=== PATIENT | female | born 1965 | race African-American/Black ===

== ENCOUNTER → 2016-10-15 | Outpatient (CLI) | payer MEDICAID ==
--- NOTE | 2016-10-16 10:21 | ECHOF ---
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 This was a technically good study. The left ventricular size is normal. Left ventricular wall thickness is normal. Overall left ventricular systolic function is normal with, an EF between 60 - 65 %. The right ventricle is normal in size. The left atrium is normal in size. Normal LA size by volume 22+/-6 ml/m2. The right atrium is normal in size. The aortic valve is trileaflet and appears structurally normal. Mild mitral annular calcification present. There is trace mitral regurgitation. Mild tricuspid regurgitation present. Right ventricular systolic pressure is normal at < 35 mmHg. The pulmonic valve is normal. There is no pulmonic regurgitation present. The aortic root size is normal. Normal inferior vena cava with normal inspiratory collapse consistent with estimated right atrial pressure of 5 mmHg. There is no pericardial effusion. CONCLUSIONS -------- 1. Sinus rhythm. 2. Mild mitral annular calcification present. 3. There is trace mitral regurgitation. 4. Mild tricuspid regurgitation present. 5. Right ventricular systolic pressure is normal at < 35 mmHg. 6. The pulmonic valve is normal. 7. The aortic root size is normal. 8. Normal inferior vena cava with normal inspiratory collapse consistent with estimated right atrial pressure of 5 mmHg. 9. There is no pericardial effusion. 10. This was a technically good study. 11. The left ventricular size is normal. 12. Left ventricular wall thickness is normal. 13. Overall left ventricular systolic function is normal with, an EF between 60 - 65 %. 14. The right ventricle is normal in size. 15. Normal LA size by volume 22+/-6 ml/m2. 16. The right atrium is normal in size. 17. The aortic valve is trileaflet and appears structurally normal. LINE PALLETIZER: Linh Cabral RDCS
== END | disposition home or self-care (01) ==
LOC: RADECHMAIN 13:16
PROVIDERS: ATTEND Internal Medicine
DX: I26.02 Saddle embolus of pulmonary artery with acute cor pulmonale (principal)
CPT/HCPCS: 93306

== ENCOUNTER → 2016-10-28 | Day surgery (SDC) | payer MEDICAID ==
[~2016-10-28] MED LIST: BACITRACIN OINT 1 EACH PACKET TOPICAL ONE; LIDOCAINE 1% INJ 10MG/ML (20 ML MDV) ONE; SODIUM BICARB 4% 5 ML VIAL (0.48 MEQ/ML) ONE
--- NOTE | 2016-10-28 16:37 | MM ---
EXAMINATION TYPE: MG stereo VAD BX RT DATE OF EXAM: 10/28/2016 3:47 PM COMPARISON: 07/30/2016 CLINICAL HISTORY: Abnormal mammogram TECHNIQUE: Stereotactic guided core biopsy of right breast. FINDINGS: The procedure of stereotactic guided core biopsy was explained to the patient. Benefits, alternatives, and risks were discussed. An informed consent was then obtained. The shortness pathway for biopsy was chosen. Shortness pathway was inferior approach. The radiologist targeted and performed this stereotactic core biopsy. A vacuum assisted biopsy gun was used to obtain 4 core samples. The patient tolerated the procedure well without any immediate complication. The patient was kept in the radiology department for short stay after the procedure and then discharged home in stable condition. Targeted calcifications are identified in specimen mammogram. Post biopsy mammogram shows the clip to appear in satisfactory position relative to the targeted area of concern on the preprocedure images. Previous calcifications within resected. Discharge instructions were discussed with the patient. The patient will follow- up with her referring physician for pathology results. IMPRESSION: SUCCESSFUL, UNCOMPLICATED STEREOTACTIC GUIDED CORE BIOPSY OF AREA OF CONCERN IN THE right BREAST, FULL PATHOLOGY RESULTS TO FOLLOW. Pathology Results: High Risk BREAST, RIGHT, CORE BIOPSY: FOCAL ATYPICAL LOBULAR HYPERPLASIA. FIBROCYSTIC CHANGES INCLUDING FIBROSIS, CYSTS AND APOCRINE METAPLASIA. Recommendation Surgical consult of the right breast. VICTOR HUGO
== END ==
LOC: RADMAMWWP 13:37
PROVIDERS: ATTEND Surgery
DX: N62 Hypertrophy of breast (principal); N60.31 Fibrosclerosis of right breast; N60.01 Solitary cyst of right breast; N60.81 Other benign mammary dysplasias of right breast
CPT/HCPCS: 88305; 88342; 88341; 19081; A4648; J2001

== ENCOUNTER 2017-04-06 07:34 | Day surgery (SDC) | payer MEDICAID ==
[2017-04-02 18:24] VITALS: BMI 41.3
[~2017-04-06 07:34] MED LIST changes: -BACITRACIN OINT 1 EACH PACKET TOPICAL ONE; +LACTATED RINGERS 1,000 ML IV SCH; -LIDOCAINE 1% INJ 10MG/ML (20 ML MDV) ONE; -SODIUM BICARB 4% 5 ML VIAL (0.48 MEQ/ML) ONE
[2017-04-06 08:06] VITALS: TEMP 98.3
[2017-04-06] MEDS ORDERED: PROPOFOL 10 MG/ML 20 ML VIAL IV ONE (08:31)
--- NOTE | 2017-04-06 08:56 | P.OP ---
Date of Procedure: 04/06/17 Preoperative Diagnosis: Screening Postoperative Diagnosis: Mild the internal and external hemorrhoids. Procedure(s) Performed: Colonoscopy Implants: Anesthesia: MAC Surgeon: Corwin Nunn Estimated Blood Loss (ml): 0 Pathology: none sent Condition: stable Disposition: same day Indications for Procedure: Screening Operative Findings: Mild internal and external hemorrhoids. Otherwise normal colonoscopy. Description of Procedure: With the patient in the left lateral position rectal digital examination was normal. There were no palpable masses. The video colonoscope was inserted transanally and advanced all the way to the cecum which was entered without visualized. The mucosa were thoroughly examined. Findings normal colonoscopy. Mild internal and external hemorrhoids. The patient tolerated procedure well without any evident complication. Recommendation. High-fiber diet. Follow-up colonoscopy in about the 10 years or so since she has no high-risk factors: CTA. May resume her home meds. Disposition home.
[2017-04-06 09:05] VITALS: BP 143/75; PULSE 50; RESP 18
== END 2017-04-06 09:24 | disposition home or self-care (01) ==
LOC: ORWHC2ENDO 07:34
PROVIDERS: ATTEND Surgery
DX: Z12.11 Encounter for screening for malignant neoplasm of colon (principal); K64.4 Residual hemorrhoidal skin tags; K64.8 Other hemorrhoids; I25.10 Atherosclerotic heart disease of native coronary artery without angina pectoris; I10 Essential (primary) hypertension; Z79.01 Long term (current) use of anticoagulants; Z79.899 Other long term (current) drug therapy; Z88.6 Allergy status to analgesic agent
CPT/HCPCS: 81025; 84703; J2704; G0121

== ENCOUNTER → 2017-04-30 | Outpatient (CLI) | payer MEDICAID ==
--- NOTE | 2017-04-30 12:30 | MM ---
Reason for exam: follow-up at short interval from prior study. Last mammogram was performed 9 months ago. History: Patient has history of high-risk lesion on a previous biopsy at age 51. Family history of breast cancer in cousin at age 57. High risk MG stereo VAD BX RT of the right breast, October 28, 2016. Physical Findings: Nurse did not find any significant physical abnormalities on exam. MG 3D Diag Mammo W/Cad RT CC and MLO view(s) were taken of the right breast. Prior study comparison: July 30, 2016, bilateral MG 3d diag mammo w/cad EDISON. March 06, 2014, left breast MG diagnostic mammo LT w CAD. The breast tissue is heterogeneously dense. This may lower the sensitivity of mammography. Post biopsy change upper central right breast. No new suspicious findings or calcifications. These results were verbally communicated with the patient and result sheet given to the patient on 04/30/17. ASSESSMENT: Benign, BI-RAD 2 RECOMMENDATION: Routine screening mammogram of both breasts in 4 months. Back on schedule, July.
== END | disposition home or self-care (01) ==
LOC: RADMAMWWP 09:28
PROVIDERS: ATTEND Surgery
DX: R92.8 Other abnormal and inconclusive findings on diagnostic imaging of breast (principal)
CPT/HCPCS: G0206; G0279

== ENCOUNTER 2018-05-18 14:50 | Observation (INO) | payer MEDICAID ==
[2018-05-18 16:34] LABS: Basophils % (A) 0 %; Eosinophils % (A) 1 %; HCT 35.6 % (34.0-46.0); HGB 10.8 gm/dL (11.4-16.0); Hypochromasia Moderate; Lymphocytes # (A) 1.3 k/uL (1.0-4.8); Lymphocytes % (A) 25 %; MCH 23.3 pg (25.0-35.0); MCHC 30.4 g/dL (31.0-37.0); MCV 76.7 fL (80.0-100.0); Mean Platelet Volume 6.8; Microcytosis Slight; Monocytes # (A) 0.2 k/uL (0-1.0); Monocytes % (A) 4 %; Neutrophils # (A) 3.5 k/uL (1.3-7.7); Neutrophils % (A) 68 %; Platelet Count 363 k/uL (150-450); RBC 4.64 m/uL (3.80-5.40); RDW 15.6 % (11.5-15.5); WBC 5.2 k/uL (3.8-10.6)
[2018-05-18 16:46] LABS: ALT 24 U/L (9-52); AST 24 U/L (14-36); Albumin 4.1 g/dL (3.5-5.0); Alkaline Phosphatase 69 U/L (38-126); Anion Gap 12 mmol/L; Blood Urea Nitrogen 12 mg/dL (7-17); Calcium 9.3 mg/dL (8.4-10.2); Carbon Dioxide 22 mmol/L (22-30); Chloride 108 mmol/L (98-107); Glucose 95 mg/dL (74-99); Sodium 142 mmol/L (137-145); Total Bilirubin 0.5 mg/dL (0.2-1.3); Total Protein 7.9 g/dL (6.3-8.2)
[2018-05-18 16:57] LABS: Potassium 4.3 mmol/L (3.5-5.1)
[2018-05-18] MEDS ORDERED: KETOROLAC 30 MG/ML 1 ML VIAL IVP STA (17:02)
[2018-05-18] MEDS ORDERED: MORPHINE SULFATE 4 MG/ML SYRINGE IV STA (17:02)
[2018-05-18] MEDS ORDERED: SODIUM CHLORIDE 0.9% 1,000 ML IV STA ×2 (17:02)
[2018-05-18 17:59] LABS: Appearance,Urine Cloudy (Clear); Bilirubin,Urine Negative (Negative); Blood,Urine Moderate (Negative); Color,Urine Yellow; Glucose,Urine (UA) Negative (Negative); Hyaline Casts,Urine 12 /lpf (0-2); Ketones,Urine Trace (Negative); Leukocyte Esterase,Urine Negative (Negative); Mucus,Urine Many /hpf; Nitrite,Urine Negative (Negative); PH, Urine 5.5 (5.0-8.0); Protein,Urine Trace (Negative); RBC,Urine <1 /hpf (0-5); Specific Gravity,Urine 1.016 (1.001-1.035); Squamous Epithelial Cell,Urine 3 /hpf (0-4); Urobilinogen,Urine <2.0 mg/dL (<2.0); WBC,Urine 19 /hpf (0-5)
--- NOTE | 2018-05-18 19:01 | ED ---
General Adult HPI - General Chief complaint: Recheck/Abnormal Lab/Rx Stated complaint: Neck Pain Time Seen by Provider: 05/18/18 16:48 Source: patient, RN notes reviewed, old records reviewed Mode of arrival: ambulatory Limitations: no limitations - History of Present Illness Initial comments: This is a 53-year-old female. This patient presents today for evaluation or neck pain left-sided neck pain. Patient's been evaluated for neck pain by family doctor with no known cause. She is taking Motrin Tylenol with no help. Patient is no trauma. Was noted a fever today. Patient's pain is left side of neck left anterior neck. She did notice fever as well. Mild congestion mild cough coughing up mucus. No chest pain or shortness breath no bowel pain no other sick contacts or travel history. No neck pain, patient denies sore throat. No ear pain - Related Data Home Medications Medication Instructions Recorded Confirmed Ferrous Sulfate [Feosol] 325 mg PO HS 04/02/17 05/18/18 Furosemide [Lasix] 40 mg PO HS 04/02/17 05/18/18 Rivaroxaban [Xarelto] 20 mg PO HS 04/02/17 05/18/18 Allergies Allergy/AdvReac Type Severity Reaction Status Date / Time No Known Allergies Allergy Verified 05/18/18 16:47 Review of Systems ROS Statement: Those systems with pertinent positive or pertinent negative responses have been documented in the HPI. ROS Other: All systems not noted in ROS Statement are negative. Past Medical History Past Medical History: Pulmonary Embolus (PE) Additional Past Medical History / Comment(s): anemia, multiple PE's 2016 History of Any Multi-Drug Resistant Organisms: None Reported Past Surgical History: No Surgical Hx Reported Past Anesthesia/Blood Transfusion Reactions: No Reported Reaction Additional Past Anesthesia/Blood Transfusion Reaction / Comment(s): never had anesthesia, no family problems Past Psychological History: No Psychological Hx Reported Smoking Status: Never smoker Past Alcohol Use History: None Reported Past Drug Use History: None Reported - Past Family History Father Family Medical History: Cancer Additional Family Medical History / Comment(s): lung cancer Mother Family Medical History: Diabetes Mellitus Additional Family Medical History / Comment(s): tumors on liver Brother(s) Family Medical History: Diabetes Mellitus Sister(s) Family Medical History: Diabetes Mellitus General Exam - General Exam Comments Initial Comments: Left neck tenderness and cervical lymphadenopathy anterior Limitations: no limitations General appearance: alert, in no apparent distress Head exam: Present: atraumatic, normocephalic, normal inspection Eye exam: Present: normal appearance, PERRL, EOMI. Absent: scleral icterus, conjunctival injection, periorbital swelling ENT exam: Present: normal exam, mucous membranes moist Neck exam: Present: normal inspection. Absent: tenderness, meningismus, lymphadenopathy Respiratory exam: Present: normal lung sounds bilaterally. Absent: respiratory distress, wheezes, rales, rhonchi, stridor Cardiovascular Exam: Present: regular rate, normal rhythm, normal heart sounds. Absent: systolic murmur, diastolic murmur, rubs, gallop, clicks GI/Abdominal exam: Present: soft, normal bowel sounds. Absent: distended, tenderness, guarding, rebound, rigid Extremities exam: Present: normal inspection, full ROM, normal capillary refill. Absent: tenderness, pedal edema, joint swelling, calf tenderness Back exam: Present: normal inspection Neurological exam: Present: alert, oriented X3, CN II-XII intact Psychiatric exam: Present: normal affect, normal mood Skin exam: Present: warm, dry, intact, normal color. Absent: rash Course Vital Signs 05/18/18 05/18/18 15:03 16:52 Temperature 98.1 F 99.6 F Pulse Rate 91 92 Respiratory 18 18 Rate Blood Pressure 137/74 142/91 O2 Sat by Pulse 96 97 Oximetry Medical Decision Making - Medical Decision Making 53 female the ER with left-sided persistent lymphadenopathy in severe neck pain. Patient will be admitted for IV antibiotics for lymphadenitis, pain control. - Lab Data Result diagrams: 05/18/18 16:20 05/18/18 16:20 Lab Results 05/18/18 05/18/18 05/18/18 Range/Units 16:20 16:20 16:20 WBC 5.2 (3.8-10.6) k/uL RBC 4.64 (3.80-5.40) m/uL Hgb 10.8 L (11.4-16.0) gm/dL Hct 35.6 (34.0-46.0) % MCV 76.7 L (80.0-100.0) fL MCH 23.3 L (25.0-35.0) pg MCHC 30.4 L (31.0-37.0) g/dL RDW 15.6 H (11.5-15.5) % Plt Count 363 (150-450) k/uL Neutrophils % 68 % Lymphocytes % 25 % Monocytes % 4 % Eosinophils % 1 % Basophils % 0 % Neutrophils # 3.5 (1.3-7.7) k/uL Lymphocytes # 1.3 (1.0-4.8) k/uL Monocytes # 0.2 (0-1.0) k/uL Eosinophils # 0.0 (0-0.7) k/uL Basophils # 0.0 (0-0.2) k/uL Hypochromasia Moderate Microcytosis Slight Sodium 142 (137-145) mmol/L Potassium 4.3 (3.5-5.1) mmol/L Chloride 108 H (98-107) mmol/L Carbon Dioxide 22 (22-30) mmol/L Anion Gap 12 mmol/L BUN 12 (7-17) mg/dL Creatinine 0.80 (0.52-1.04) mg/dL Est GFR (CKD-EPI)AfAm >90 (>60 ml/min/1.73 sqM) Est GFR (CKD-EPI)NonAf 84 (>60 ml/min/1.73 sqM) Glucose 95 (74-99) mg/dL Plasma Lactic Acid Donny 1.2 (0.7-2.0) mmol/L Calcium 9.3 (8.4-10.2) mg/dL Total Bilirubin 0.5 (0.2-1.3) mg/dL AST 24 (14-36) U/L ALT 24 (9-52) U/L Alkaline Phosphatase 69 (38-126) U/L Total Protein 7.9 (6.3-8.2) g/dL Albumin 4.1 (3.5-5.0) g/dL Urine Color Urine Appearance (Clear) Urine pH (5.0-8.0) Ur Specific Lyndon (1.001-1.035) Urine Protein (Negative) Urine Glucose (UA) (Negative) Urine Ketones (Negative) Urine Blood (Negative) Urine Nitrite (Negative) Urine Bilirubin (Negative) Urine Urobilinogen (<2.0) mg/dL Ur Leukocyte Esterase (Negative) Urine RBC (0-5) /hpf Urine WBC (0-5) /hpf Ur Squamous Epith Cells (0-4) /hpf Hyaline Casts (0-2) /lpf Urine Mucus (None) /hpf Group A Strep Rapid (Negative) 05/18/18 05/18/18 Range/Units 17:39 17:39 WBC (3.8-10.6) k/uL RBC (3.80-5.40) m/uL Hgb (11.4-16.0) gm/dL Hct (34.0-46.0) % MCV (80.0-100.0) fL MCH (25.0-35.0) pg MCHC (31.0-37.0) g/dL RDW (11.5-15.5) % Plt Count (150-450) k/uL Neutrophils % % Lymphocytes % % Monocytes % % Eosinophils % % Basophils % % Neutrophils # (1.3-7.7) k/uL Lymphocytes # (1.0-4.8) k/uL Monocytes # (0-1.0) k/uL Eosinophils # (0-0.7) k/uL Basophils # (0-0.2) k/uL Hypochromasia Microcytosis Sodium (137-145) mmol/L Potassium (3.5-5.1) mmol/L Chloride (98-107) mmol/L Carbon Dioxide (22-30) mmol/L Anion Gap mmol/L BUN (7-17) mg/dL Creatinine (0.52-1.04) mg/dL Est GFR (CKD-EPI)AfAm (>60 ml/min/1.73 sqM) Est GFR (CKD-EPI)NonAf (>60 ml/min/1.73 sqM) Glucose (74-99) mg/dL Plasma Lactic Acid Donny (0.7-2.0) mmol/L Calcium (8.4-10.2) mg/dL Total Bilirubin (0.2-1.3) mg/dL AST (14-36) U/L ALT (9-52) U/L Alkaline Phosphatase (38-126) U/L Total Protein (6.3-8.2) g/dL Albumin (3.5-5.0) g/dL Urine Color Yellow Urine Appearance Cloudy H (Clear) Urine pH 5.5 (5.0-8.0) Ur Specific Lyndon 1.016 (1.001-1.035) Urine Protein Trace H (Negative) Urine Glucose (UA) Negative (Negative) Urine Ketones Trace H (Negative) Urine Blood Moderate H (Negative) Urine Nitrite Negative (Negative) Urine Bilirubin Negative (Negative) Urine Urobilinogen <2.0 (<2.0) mg/dL Ur Leukocyte Esterase Negative (Negative) Urine RBC <1 (0-5) /hpf Urine WBC 19 H (0-5) /hpf Ur Squamous Epith Cells 3 (0-4) /hpf Hyaline Casts 12 H (0-2) /lpf Urine Mucus Many H (None) /hpf Group A Strep Rapid Negative (Negative) - Radiology Data Radiology results: report reviewed (CT soft tissue neck to show lymphadenitis lymphadenopathy), image reviewed Disposition Clinical Impression: Lymphadenopathy Disposition: ADMITTED IP TO THIS HOSP Condition: Good Instructions: Lymphadenopathy (ED) Is patient prescribed a controlled substance at d/c from ED?: No Referrals: Hima Chris MD [Primary Care Provider] - 1-2 days
--- NOTE | 2018-05-18 19:23 | XR ---
EXAMINATION: XR chest 2V DATE AND TIME: 05/18/2018 6:14 PM ORDERING PROVIDER: Minh Andrea DO CLINICAL INDICATION: abdominal pain TECHNIQUE: PA and lateral COMPARISON: None. DESCRIPTION: The lungs are clear. The pleural spaces are negative. The cardiac silhouette is not enlarged. The mediastinal and pleural silhouettes are unremarkable. The skeletal structures are intact without focal findings. The soft tissues are prominent. IMPRESSION: NO ACUTE PROCESS.
--- NOTE | 2018-05-18 19:43 | CT ---
EXAMINATION TYPE: CT soft tissue neck w con DATE OF EXAM: 05/18/2018 6:09 PM COMPARISON: None HISTORY: Left side neck pain and swelling x2 weeks. CT DLP: 786 mGycm Automated exposure control for dose reduction was used. CONTRAST: CT scan of the neck is performed following with IV Contrast, patient injected with 100ml mL of Isovue M300. Axial images are obtained, coronal and sagittal reformatted images are reviewed. FINDINGS: Airway: No gross abnormality seen. Lymph josué stations: There are multifocal mildly-enlarged lymph nodes throughout the left carotid sh eath of the suprahyoid neck, with extension to involve the infrahyoid neck as well. These measure fro m 1.2 to 2 cm diameter, with some displaying central hypoattenuation. Carotid/Vascular Structures: Widely patent bilaterally. There is, however, mild/moderate mass effect upon the left internal jugular vein throughout its extent, secondary to cervical adenopathy. Salivary glands: No gross abnormality seen. Aerodigestive examination: No mass or mass effect. Other: No abnormal fluid or gas collections centrally, or throughout the suprahyoid or infrahyoid nec k. Osseous Structures: Unremarkable. Generalized intrathoracic structures: Unremarkable. IMPRESSION: LEFT CERVICAL ADENOPATHY.
[2018-05-18] MEDS ORDERED: AMPICILLIN-SULBACTAM 3 GM in SODIUM CHLORIDE 0.9% 100 ML IVPB STA (20:05)
[2018-05-18] MEDS ORDERED: MORPHINE SULFATE 4 MG/ML SYRINGE IVP PRN (20:05)
[2018-05-19 03:45] VITALS: BMI 42.2
[2018-05-19] MEDS: AMPICILLIN-SULBACTAM 3 GM in SODIUM CHLORIDE 0.9% 100 ML IVPB SCH ×2 (08:18→15:57)
[2018-05-19] MEDS: IBUPROFEN 800 MG TAB PO PRN (15:55)
[2018-05-19] MEDS ORDERED: MORPHINE ORAL SOLN 10 MG/5 ML CUP PO PRN (19:07)
[2018-05-19 20:10] LABS: Anti-DNA, DS unit <1.0 IU/mL; DNA Double-Stranded NEGATIVE (NEGATIVE)
[2018-05-19] MEDS ORDERED: RIVAROXABAN 20 MG TAB PO SCH (21:00)
[2018-05-19] MEDS ORDERED: FERROUS SULFATE 325 MG TAB PO SCH (21:00)
[2018-05-20] MEDS: AMPICILLIN-SULBACTAM 3 GM in SODIUM CHLORIDE 0.9% 100 ML IVPB SCH ×3 (01:17→15:20)
[2018-05-20] MEDS: IBUPROFEN 800 MG TAB PO PRN ×2 (02:33→15:19)
[2018-05-20] MEDS: IOPAMIDOL-300 CONTRAST 30 ML VIAL (ORAL USE) PO PRN ×2 (11:00→12:05)
--- NOTE | 2018-05-20 12:23 | P.NPCON ---
History of Present Illness - Reason for Consult Consult date: 05/20/18 - Chief Complaint Hyaline casts in the urine - History of Present Illness This is a 53-year-old female seen in consultation because of urinalysis showing hyaline casts. Her creatinine is normal at electrolytes are normal. She was admitted with painful lymphadenopathy on the left neck computed tomography scan confirms this. She has not been on any antibiotics. She denies any fever chills cough shortness of breath nausea vomiting. The lymphadenopathy has been going on for about 2 weeks. Past history significant for a DVT and pulmonary embolism 2 years ago after she hurt her leg and was traveling in the car frequently. She is been started on his Xaralto lifelong. There is no past history of any kidney disease. Past Medical History Past Medical History: Pulmonary Embolus (PE) Additional Past Medical History / Comment(s): anemia, multiple PE's 2015 History of Any Multi-Drug Resistant Organisms: None Reported Past Surgical History: No Surgical Hx Reported Past Anesthesia/Blood Transfusion Reactions: No Reported Reaction Additional Past Anesthesia/Blood Transfusion Reaction / Comment(s): never had anesthesia, no family problems Past Psychological History: No Psychological Hx Reported Smoking Status: Never smoker Past Alcohol Use History: None Reported Past Drug Use History: None Reported - Past Family History Father Family Medical History: Cancer Additional Family Medical History / Comment(s): lung cancer Mother Family Medical History: Diabetes Mellitus Additional Family Medical History / Comment(s): tumors on liver Brother(s) Family Medical History: Diabetes Mellitus Sister(s) Family Medical History: Diabetes Mellitus Medications and Allergies Home Medications Medication Instructions Recorded Confirmed Type Ferrous Sulfate [Feosol] 325 mg PO HS 04/02/17 05/18/18 History Furosemide [Lasix] 40 mg PO HS 04/02/17 05/18/18 History Rivaroxaban [Xarelto] 20 mg PO HS 04/02/17 05/18/18 History Allergies Allergy/AdvReac Type Severity Reaction Status Date / Time No Known Allergies Allergy Verified 05/18/18 16:47 Physical Exam Vitals: Vital Signs Temp Pulse Resp BP Pulse Ox 05/20/18 05:59 98.1 F 83 18 136/70 95 05/19/18 20:50 97.8 F 78 18 132/74 95 05/19/18 20:31 18 08/22/18 16:00 88 16 05/19/18 15:23 97.3 F L 88 16 164/73 98 Intake and Output 05/19/18 05/20/18 05/20/18 22:59 06:59 14:59 Intake Total 1080 640 Balance 1080 640 Intake: Intake, IV Titration 100 Amount Ampicillin-Sulbactam 3 gm 100 In Sodium Chloride 0.9% 100 ml @ 100 mls/hr IVPB Q8HR [facility] Rx#:[id number] Oral 1080 540 Other: Voiding Method Toilet # Voids 1 1 On examination awake alert oriented comfortable She has lymphadenopathy in the left neck. There is no other nodes noted in the axilla or groin or elsewhere. Lungs are clear to auscultationgood air entry bilaterally. Heart sounds are unremarkable for any murmur rub gallop Abdomen soft nontender no organomegaly ascites masses Extremity exam was no edema Neurologically awake alert oriented. Results - Lab Results Most recent lab results Calcium 9.3 mg/dL (8.4-10.2) 05/18/18 16:20 05/18/18 16:20 05/18/18 16:20 Assessment and Plan Assessment: Impression 1. seen in consultation because of hyaline casts in the urine which can be off no significant. It can be seen in various conditions both physiological and pathological. This her creatinine is normal at electrolytes are normal there is no concern for any serious kidney disease 2. Admitted with painful lymphadenopathy left neck. 3. History of DVT and pulmonary embolism 2 years ago. On anticoagulation lifelong. Recommendation. Patient can be just watch as far as renal function is concerned. She is being worked up for lymphadenopathy. I'll sign off the case but if needed please let me know thank you for this consultation
--- NOTE | 2018-05-20 14:06 | CT ---
EXAMINATION TYPE: CT ChestAbdPelvis w con DATE OF EXAM: 05/20/2018 COMPARISON: Prior CT chest 06/22/2016, CT soft tissue neck 05/18/2018 HISTORY: Left Sided upper Chest swelling CT DLP: 2100.3 mGycm Automated exposure control for dose reduction was used. CONTRAST: CT scan of the chest, abdomen and pelvis is performed with Oral Contrast and with IV Contrast, patien t injected with 100 mL of Isovue 300. FINDINGS: LUNGS: The lungs are grossly clear, there is no concerning parenchymal mass or nodule identified. Kaitlyn pect some minimal basilar atelectasis. There is no pleural effusion or pneumothorax seen. The trach eobronchial tree is patent. MEDIASTINUM: There are no greater than 1 cm hilar or mediastinal lymph nodes. No pericardial effusi on is seen. AORTA: No significant abnormality is seen. OTHER: Right axillary node measures 15 mm. Nonenlarged nodes are present within both axilla.. LIVER/GB: No significant abnormality is appreciated. PANCREAS: No significant abnormality is seen. SPLEEN: No significant abnormality is seen. ADRENALS: No significant abnormality is seen. KIDNEYS: Parapelvic cysts are associated with the bilateral kidneys. Cortical cyst on the right at th e mid pole measures 9 mm, smaller cysts are present at the upper pole left kidney, possible angiomyol ipoma is also subcentimeter in size in the upper pole left kidney. REPRODUCTIVE ORGANS: There is a bulky enlarged uterus with associated calcifications compatible with fibroids. BOWEL: No significant abnormality is seen. FREE AIR: No Free Air visible. ASCITES: None seen. RETROPERITONEAL ADENOPATHY: No retroperitoneal adenopathy is seen. LYMPH NODES: No greater than 1 cm abdominal or pelvic lymph nodes are appreciated. URINARY BLADDER: No significant abnormality is seen. PELVIC ADENOPATHY: None visualized. OSSEOUS STRUCTURES: No significant abnormality is seen. IMPRESSION: There is an enlarged right axillary node. No evident additional adenopathy. Additional fi ndings above. Nuclear medicine PET/CT May be of benefit.
[2018-05-20 14:42] VITALS: BP 143/82; PULSE 81; RESP 16; TEMP 97.6
--- NOTE | 2018-05-20 14:46 | P.CONS ---
History of Present Illness - Reason for Consult Consult date: 05/20/18 left cervical lymphadenopathy Requesting physician: Hima Chris - Chief Complaint left neck pain - History of Present Illness Ms. Browne is a very pleasant AAF who states normal state of health, no significant co-morbid conditions until about 2 weeks ago. She noted increase neck pain, more on the left, she had increased sputum production but no fevers, sore throat, ear ache, hearing loss, dysphagia or cough, she then noticed painful swelling, left side neck only, no other swellings in neck or axilla noted, no other symptoms. She was seen by PCP Dr. Chris who admitted her for abx and to have pt evaluated further. Pt denied personal history of cancer, unrealistic fatigue, unintentional wt. loss, oral abscess, she is a lifetime non -smoker, she is current on her age appropriate cancer screenings, she did have a PE diagnosed 2 years ago when she was travelling to [facility] frequently, she still takes xarelto, no c/o bleeding. . Review of Systems 14 pont ROS as stated in HPI Past Medical History Past Medical History: Pulmonary Embolus (PE) Additional Past Medical History / Comment(s): anemia, multiple PE's 2016 History of Any Multi-Drug Resistant Organisms: None Reported Past Surgical History: No Surgical Hx Reported Past Anesthesia/Blood Transfusion Reactions: No Reported Reaction Additional Past Anesthesia/Blood Transfusion Reaction / Comm: never had anesthesia, no family problems Past Psychological History: No Psychological Hx Reported Smoking Status: Never smoker Past Alcohol Use History: None Reported Past Drug Use History: None Reported - Past Family History Father Family Medical History: Cancer Additional Family Medical History / Comment(s): lung cancer Mother Family Medical History: Diabetes Mellitus Additional Family Medical History / Comment(s): tumors on liver Brother(s) Family Medical History: Diabetes Mellitus Sister(s) Family Medical History: Diabetes Mellitus Medications and Allergies Home Medications Medication Instructions Recorded Confirmed Type Ferrous Sulfate [Feosol] 325 mg PO HS 04/02/17 05/18/18 History Furosemide [Lasix] 40 mg PO HS 04/02/17 05/18/18 History Rivaroxaban [Xarelto] 20 mg PO HS 04/02/17 05/18/18 History Allergies Allergy/AdvReac Type Severity Reaction Status Date / Time No Known Allergies Allergy Verified 05/18/18 16:47 Physical Exam Vitals: Vital Signs Temp Pulse Resp BP Pulse Ox 05/20/18 05:59 98.1 F 83 18 136/70 95 05/19/18 20:50 97.8 F 78 18 132/74 95 05/19/18 20:31 18 05/19/18 16:00 88 16 05/19/18 15:23 97.3 F L 88 16 164/73 98 Intake and Output 05/19/18 05/20/18 05/20/18 22:59 06:59 14:59 Intake Total 1080 640 Balance 1080 640 Intake: Intake, IV Titration 100 Amount Ampicillin-Sulbactam 3 gm 100 In Sodium Chloride 0.9% 100 ml @ 100 mls/hr IVPB Q8HR [facility] Rx#:[id number] Oral 1080 540 Other: Voiding Method Toilet # Voids 1 1 - Constitutional General appearance: cooperative, no acute distress, obese - EENT Eyes: anicteric sclerae, EOMI, normal appearance ENT: normal oropharynx - Neck left anterior cervical has matted lymph nodes, painful to touch, no supraclavicular, axillary adenopathy Neck: lymphadenopathy - Respiratory Respiratory: bilateral: CTA - Cardiovascular Rhythm: regular Heart sounds: normal: S1, S2 leg Peripheral Edema: bilateral: None - Gastrointestinal General gastrointestinal: no absent bowel sounds, no decreased bowel sounds, no distended, no hepatomegaly, no hyperactive bowel sounds, normal bowel sounds, no organomegaly, no rigid, no scaphoid, soft, no splenomegaly, no tenderness, no umbilical hernia, no ventral hernia - Integumentary Integumentary: normal, normal turgor - Neurologic Neurologic: CNII-XII intact - Musculoskeletal Musculoskeletal: strength equal bilaterally - Psychiatric Psychiatric: A&O x's 3, appropriate affect, intact judgment & insight Results CBC & Chem 7: 05/18/18 16:20 05/18/18 16:20 Labs: Abnormal Lab Results - Last 24 Hours (Table) 05/19/18 Range/Units 16:25 ESR 60 H (0-20) mm/hr Microbiology - Last 24 Hours (Table) 05/18/18 17:39 Urine Culture - Final Urine,Catheterized 05/18/18 16:20 Blood Culture - Preliminary Blood No Growth after 24 hours Comments: CT neck, report reviewed Chest x-ray: report reviewed Assessment and Plan (1) Lymphadenopathy Narrative/Plan: CT CAP ordered to evaluate for any other adenopathy, mass or lesion. Case discussed with Dr. Chris Pt is ok from Hem/Onc to be discharged after scans. Plan is for pt to complete abx therapy. If adenopathy persists or progresses then biopsy will be requested. Also, if CT shows any suspicious areas then biopsy will be requested. Pt understands plan. She will be contacted by Dr. Falk's office, she was given contact info and told to call for f/u if she dose not hear from office in the next 10 days. Current Visit: Yes Status: Acute Priority: High Code(s): R59.1 - GENERALIZED ENLARGED LYMPH NODES SNOMED Code(s): 11441907 Plan: Doctor attests:I have performed a history and physical exam of this pt, discussed with dictator. I agree with dictated note, documented as a scribe.
--- NOTE | 2018-05-20 16:34 | PN ---
PROGRESS NOTE DATE OF SERVICE: 05/19/2018. CHIEF COMPLAINT: Generalized weakness and myalgias with pain in the left side of the neck. HISTORY OF PRESENT ILLNESS: This lady is doing a bit better. Orientation seems to be more appropriate. She is less agitated. She is still complaining of pain left side of the neck. PHYSICAL EXAM: HEENT is normal and there is slight swelling and tenderness left-sided neck. Chest is clear. Cardiac exam is normal. Abdomen is soft, nontender. Extremities are normal. IMPRESSION: Pain in the left side of the neck with generalized myalgias, etiology unknown. PLAN: 1. Continue workup. 2. Nephrology evaluation because of hyaline casts in the urine. 3. Possible hematology consult. MMODL / IJN: [id number] /
--- NOTE | 2018-05-20 16:43 | PN ---
PROGRESS NOTE CHIEF COMPLAINT: Generalized myalgias with fever and pain and swelling in the left side of the neck. HISTORY OF PRESENT ILLNESS: This lady is feeling much better and would like to go home. Case was discussed with Dr. Falk who was somewhat concerned about the mediastinal adenopathy. She still has the swelling and discomfort in the left side of the neck. She has not yet been seen by Nephrology. PHYSICAL EXAM: Chest is clear. Cardiac exam is normal. Abdomen is soft, nontender. She continues to still have some tenderness and swelling in the left side of the neck. IMPRESSION: 1. Generalized weakness and myalgias, etiology unknown. 2. Left-sided pain, swelling and lymphadenitis. 3. Hyaline casts in the urine. 4. Hypertension. PLAN: CT of the chest will be ordered and she will be seen by Hematology/Oncology. She is also to be seen by Med Renal. MMODL / IJN: [id number] /
--- NOTE | 2018-05-20 17:25 | HP ---
HISTORY AND PHYSICAL CHIEF COMPLAINT: Body aches, pain in the left side of the neck, mental status changes and fever. HISTORY OF PRESENT ILLNESS: This is the first known admission for this 53-year-old -Citizen Of The [place] female. She presented to the office with generalized body aches with a fever and discomfort in the left side of the neck. She also had slight congestion and was coughing and seemed to be lethargic and not completely normal mentally. In the office she had an EKG which is normal. Chest x-ray was unremarkable. Urine was clear. Because of the various concerns, she was sent to emergency room for further evaluation. A CT demonstrated some adenopathy in the left side of the neck, but no other abnormality. She was admitted for further workup. REVIEW OF SYSTEMS: She has no focal neurologic deficits, difficulty with vision or hearing, dizziness, tinnitus, hemoptysis, chest pain, syncope, palpitations, abdominal pain, nausea, vomiting, hematemesis, melena, hematochezia, jaundice, diarrhea, history of diverticulosis or diverticulitis, hemorrhoids, etc. She has had no history of renal disease and she has had no dysuria, frequency, urgency, incontinence, etc. She is not diabetic. She has had a history of pulmonary embolism. PAST MEDICAL HISTORY, FAMILY HISTORY, PERSONAL AND SOCIAL HISTORIES: Reveals she is not ALLERGIC to any medication. She is on Xarelto 20 mg once a day, Lasix 40 mg once a day. She does not drink or smoke. PHYSICAL EXAM: Temperature is 100.4, respirations of 34, pulse of 92, and blood pressure 118/80. In general, she appeared to be overweight and slightly confused. Skin was hot and dry. Lymph nodes not enlarged. Head, ears, eyes, nose, mouth, and throat normal. Neck was supple. Ears are clear. There is some tenderness on the left side of the neck. Chest is clear to auscultation. Cardiac exam demonstrated normal sinus rhythm with no murmurs or extra sounds. Abdomen is soft, nontender without visceromegaly or masses. Bowel sounds are present. Extremities normal. Neurologically she is intact other than being not completely oriented. She is admitted to the hospital diagnoses: 1. Fever of unknown origin. 2. Generalized myalgias. 3. Pain and swelling on left-sided neck with cervical adenitis. 4. History of pulmonary emboli. PLAN: 1. Bed rest. 2. IV fluids. 3. Cultures. 4. Further evaluation of the left side cervical adenopathy. MMODL / IJN: [id number] /
[2018-05-20] MEDS ORDERED: AMOXIC-POT CLAV 875-125MG 1 EACH TAB PO SCH (21:00)
== END 2018-05-20 17:15 | disposition home or self-care (01) ==
LOC: EC 14:50 → 5MS5E 20:06
PROVIDERS: ADMIT Family Medicine; ATTEND Family Medicine
DX: I88.9 Nonspecific lymphadenitis, unspecified (principal); M54.2 Cervicalgia; R53.1 Weakness; M79.1 Myalgia; R82.99 Other abnormal findings in urine; R09.81 Nasal congestion; D64.9 Anemia, unspecified; Z86.718 Personal history of other venous thrombosis and embolism; Z86.711 Personal history of pulmonary embolism; I10 Essential (primary) hypertension; R41.82 Altered mental status, unspecified; Z79.01 Long term (current) use of anticoagulants; Z79.899 Other long term (current) drug therapy; Z80.1 Family history of malignant neoplasm of trachea, bronchus and lung; Z83.3 Family history of diabetes mellitus; Z83.79 Family history of other diseases of the digestive system
CPT/HCPCS: 96375 ×3; 96361 ×6; 96365 ×2; 96366 ×4; 99285 ×2; 96376; 36415; 80053; 85652; 83605; 85025; 86308; 81001; 87040; 86038; 86225; 87086; 87081; 87430; 71046; 70491; 71260; 74177; G0378 ×3; J2270 ×2; J1885; J0295 ×3; Q9967 ×2

== ENCOUNTER → 2020-09-13 | Outpatient (CLI) | payer MEDICAID ==
--- NOTE | 2020-09-17 09:34 | MM ---
Reason for exam: screening (asymptomatic). Last mammogram was performed 3 years and 4 months ago. History: Patient has history of high-risk lesion on a previous biopsy at age 51. Family history of breast cancer in cousin at age 57. High risk MG stereo VAD BX RT of the right breast, October 28, 2016. Physical Findings: A clinical breast exam by your physician is recommended on an annual basis and results should be correlated with mammographic findings. MG 3D Screening Mammo W/Cad Bilateral CC and MLO view(s) were taken. Prior study comparison: April 30, 2017, right breast MG 3d diag mammo w/cad RT. July 30, 2016, bilateral MG 3d diag mammo w/cad EDISON. The breast tissue is extremely dense which could obscure a lesion on mammography. Focal asymmetry left middle position. This finding is changed when compared with previous exams. ASSESSMENT: Incomplete: need additional imaging evaluation, BI-RAD 0 RECOMMENDATION: Special view mammogram of the left breast. If lesion persists on supplemental views, image directed ultrasound is recommended. [facility] will attempt to contact patient to return for supplemental views and ultrasound if indicated.
== END | disposition home or self-care (01) ==
LOC: RADMAMWWP 10:21
PROVIDERS: ATTEND Family Medicine
DX: Z12.31 Encounter for screening mammogram for malignant neoplasm of breast (principal); Z86.711 Personal history of pulmonary embolism
CPT/HCPCS: 77063; 77067

== ENCOUNTER → 2020-09-19 | Outpatient (CLI) | payer MEDICAID ==
--- NOTE | 2020-09-19 10:13 | MM ---
Reason for exam: additional evaluation requested from abnormal screening. Last mammogram was performed less than 1 month ago. History: Patient has history of high-risk lesion on a previous biopsy at age 51. Family history of breast cancer in cousin at age 57 and breast cancer in sister at age 61. High risk MG stereo VAD BX RT of the right breast, October 28, 2016. Physical Findings: Nurse did not find any significant physical abnormalities on exam. MG 3D Work Up W/Cad LT Spot compression CC, spot compression MLO, and ML view(s) were taken of the left breast. Prior study comparison: September 13, 2020, bilateral MG 3d screening mammo w/cad. April 30, 2017, right breast MG 3d diag mammo w/cad RT. Area is less conspicuous. These results were verbally communicated with the patient and result sheet given to the patient on 09/19/20. ASSESSMENT: Probably benign, BI-RAD 3 RECOMMENDATION: Follow-up diagnostic mammogram of the left breast in 6 months.
== END | disposition home or self-care (01) ==
LOC: RADMAMWWP 09:01
PROVIDERS: ATTEND Family Medicine
DX: R92.8 Other abnormal and inconclusive findings on diagnostic imaging of breast (principal)
CPT/HCPCS: 77061; 77065

== ENCOUNTER → 2020-12-25 | Outpatient (CLI) | payer MEDICAID ==
[2020-12-25 15:56] LABS: Basophils # (A) 0.04 X 10*3/uL (0.00-0.10); Basophils % (A) 0.8 %; Eosinophils # (A) 0.14 X 10*3/uL (0.04-0.35); Eosinophils % (A) 2.8 %; HCT 40.2 % (37.2-46.3); HGB 12.3 g/dL (12.0-15.0); Lymphocytes # (A) 1.64 X 10*3/uL (0.90-5.00); Lymphocytes % (A) 32.4 %; MCH 26.3 pg (27.0-32.0); MCHC 30.6 g/dL (32.0-37.0); MCV 85.9 fL (80.0-97.0); Mean Platelet Volume 10.8 fL (9.5-12.2); Monocytes # (A) 0.39 X 10*3/uL (0.20-1.00); Monocytes % (A) 7.7 %; Neutrophils # (A) 2.84 X 10*3/uL (1.80-7.70); Neutrophils % (A) 56.1 %; Platelet Count 327 X 10*3/uL (140-440); RBC 4.68 X 10*6/uL (4.10-5.20); RDW 15.5 % (11.5-14.5); WBC 5.06 X 10*3/uL (4.50-10.00)
[2020-12-25 16:22] LABS: African American GFR (CKD) 82.8 (60.0-200.0); Albumin 4.4 g/dL (3.80-4.90); Albumin/Globulin Ratio 1.83 (1.60-3.17); Anion Gap 5.2 mmol/L (4.00-12.00); BUN/Creat Ratio 16.67 Ratio (12.00-20.00); Calcium 9.9 mg/dL (8.7-10.3); Carbon Dioxide 28.8 mmol/L (21.6-31.8); Chol/HDL Ratio 4.24; Globulin 2.4 g/dL (1.6-3.3); LDL Cholesterol,Calculated 158.6 mg/dL (0.0-131.0); Non-African American GFR(CKD) 71.5 (60.0-200.0); Potassium 4.6 mmol/L (3.5-5.5); Total Bilirubin 0.4 mg/dL (0.2-1.2); Total Protein 6.8 g/dL (6.2-8.2); VLDL Calculation 19.4 mg/dL (5.00-40.00)
[2020-12-25 19:15] LABS: Hemoglobin A1C 6.1 % (4.0-6.0)
== END | disposition home or self-care (01) ==
LOC: LABWHC1 09:41
PROVIDERS: ATTEND Family Medicine
DX: Z13.220 Encounter for screening for lipoid disorders (principal); Z13.228 Encounter for screening for other metabolic disorders; Z79.899 Other long term (current) drug therapy
CPT/HCPCS: 36415; 80053; 80061; 83036; 84443; 85025

== ENCOUNTER → 2021-03-21 | Outpatient (CLI) | payer MEDICAID ==
--- NOTE | 2021-03-21 11:33 | USB ---
EXAMINATION TYPE: US breast limited LT DATE OF EXAM: 03/21/2021 COMPARISON: Mammogram same date CLINICAL HISTORY: R92.8 abnormal mammogram. Findings: Targeted left breast ultrasound was performed from 12-3 o'clock and in the retroareolar region and ax illary tail. In the left breast at 1:00, there is a 1.6 x 0.8 x 1.3 cm multilobulated cyst with posterior enhancem ent which corresponds well in size, location and morphology to the asymmetry seen on mammogram and is benign. In the left axilla, there is a 1.9 x 1.2 x 2.0 cm lymph node with cortical thickening measuring up to 0.6 cm which is probably benign and follow-up ultrasound is recommended in 6-8 weeks. Patient report s recent cold and vaccination in November or December. IMPRESSION: Left axillary ultrasound is recommended in 6-8 weeks to follow up on lymph node with cortical thicken ing. BI-RADS 3, probably benign.
--- NOTE | 2021-03-21 11:56 | MM ---
Reason for exam: follow-up at short interval from prior study. Last mammogram was performed 6 months ago. History: Patient is postmenopausal and has history of high-risk lesion on a previous biopsy at age 51. Family history of breast cancer in cousin at age 57 and breast cancer in sister at age 61. High risk MG stereo VAD BX RT of the right breast, October 28, 2016. Physical Findings: Nurse did not find any significant physical abnormalities on exam. MG 3D Diag Mammo W/Cad LT CC and MLO view(s) were taken of the left breast. Prior study comparison: September 19, 2020, left breast MG 3d work up w/cad LT. September 13, 2020, bilateral MG 3d screening mammo w/cad. The breast tissue is heterogeneously dense. This may lower the sensitivity of mammography. There is a mass in the left upper outer quadrant at middle depth and ultrasound is recommended. Previously seen asymmetry not seen and likely represented overlapping tissue. These results were verbally communicated with the patient and result sheet given to the patient on 03/21/21. ASSESSMENT: Incomplete: need additional imaging evaluation, BI-RAD 0 RECOMMENDATION: Ultrasound of the left breast.
== END | disposition home or self-care (01) ==
LOC: RADMAMWWP 10:19
PROVIDERS: ATTEND Family Medicine
DX: R92.8 Other abnormal and inconclusive findings on diagnostic imaging of breast (principal); N63.21 Unspecified lump in the left breast, upper outer quadrant; Z78.0 Asymptomatic menopausal state; Z80.3 Family history of malignant neoplasm of breast
CPT/HCPCS: 77061; 77065

== ENCOUNTER → 2021-06-25 | Outpatient (CLI) | payer MEDICAID ==
--- NOTE | 2021-06-25 09:25 | USB ---
Reason for exam: follow-up at short interval from prior study. History: Patient is postmenopausal and has history of high-risk lesion on a previous biopsy at age 51. Family history of breast cancer in cousin at age 57 and breast cancer in sister at age 61. High risk MG stereo VAD BX RT of the right breast, October 28, 2016. Physical Findings: Nurse did not find any significant physical abnormalities on exam. US Breast LT Technologist: Julieth Garcia Left complete breast ultrasound includes all four quadrants, the retroareolar region and axilla. Finding demonstratesa 1.6 x 1.3 x 0.9cm cystic cluster at 1 o'clock and a 3.5 x 1.2 x 1.3cm lymph node at the axilla versus 2.0 x 1.9 x 1.2cm previously, cortex 7.9cm versus 6mm previously. Biopsy recommended. These results were verbally communicated with the patient and result sheet given to the patient on 06/25/21. ASSESSMENT: Suspicious, BI-RAD 4 RECOMMENDATION: Ultrasound core biopsy of the left breast. (axilla node) Called Eleanor Perez's office with mammographic findings and has scheduled an appointment for the patient for 07/18/21 at 10:[address] Perez. Biopsy scheduled for 07/11/21 at 10:30. PRELIMINARY REPORT CALLED AND FAXED TO DR. PEREZ ON 06/25/21.
== END | disposition home or self-care (01) ==
LOC: RADUSWWP 07:47
PROVIDERS: ATTEND Family Medicine
DX: N60.02 Solitary cyst of left breast (principal); Z80.3 Family history of malignant neoplasm of breast

== ENCOUNTER → 2021-07-11 | Day surgery (SDC) | payer MEDICAID ==
[2021-07-11 09:41] VITALS: RESP 16
[2021-07-11 10:48] VITALS: BP 149/86; PULSE 58; TEMP 98.3
--- NOTE | 2021-07-11 11:24 | USB ---
EXAMINATION TYPE: US breast needle core LT, MG diagnostic mammo LT wo CAD DATE OF EXAM: 07/11/2021 CLINICAL HISTORY: R92.8 abnormal mammogram. Abnormal ultrasound. TECHNIQUE: Ultrasound guided core biopsy of left breast with attempted follow-up two-view mammogram. COMPARISON: Left breast ultrasound June 25, 2021 FINDINGS: The procedure of ultrasound guided core biopsy was explained to the patient. Benefits, alternatives, and risks were discussed. An informed consent was then obtained. The patient was placed in supine positioning for imaging and for the procedure. Preprocedure ultrasound redemonstrates prominent left axillary lymph node with asymmetric thickened cortex. The overlying skin was prepped and draped in usual sterile fashion. Lidocaine is used as anesthetic into the skin and subcutaneous tissue . Lidocaine with epinephrine is used as anesthetic into the deeper tissue up to area of concern in the left breast. Under ultrasound guidance, a 18-gauge Bard biopsy gun device was used to obtain 3 core samples. Following this, a biopsy Hydromark clip was left in lesion. Ultrasound able to visualize clip after placement on last image saved. The patient tolerated the procedure well without any immediate complication. The patient was kept in the radiology department for short stay after the procedure and then discharged home in stable condition. Post procedure mammogram unable to visualize clip due to marked posterior axillary position. IMPRESSION: Successful, uncomplicated ultrasound guided core biopsy of area of concern in the Left breast, full pathology results to follow. Intermediate index of suspicion noted at time of procedure. Pathology Results: Benign LEFT AXILLA, CORE BIOPSY: Reactive lymphoid tissue, negative for metastatic carcinoma. Recommendation Follow up mammogram of both breast in 2 months. Due August 2021 for bilateral exam. VICTOR HUGO
== END ==
LOC: RADUSWWP 09:27
PROVIDERS: ATTEND Surgery
DX: R92.8 Other abnormal and inconclusive findings on diagnostic imaging of breast (principal)
CPT/HCPCS: 88305; 77065; 19083; A4648; J2001

== ENCOUNTER → 2021-09-06 | Outpatient (CLI) | payer MEDICAID ==
--- NOTE | 2021-09-06 12:12 | MM ---
Reason for exam: follow-up at short interval from prior study. Last mammogram was performed 2 months ago. History: Patient is postmenopausal and has history of high-risk lesion on a previous biopsy at age 51. Family history of breast cancer in cousin at age 57 and breast cancer in sister at age 61. Benign US breast needle core LT of the left breast, July 11, 2021. High risk MG stereo VAD BX RT of the right breast, October 28, 2016. Physical Findings: Nurse did not find any significant physical abnormalities on exam. MG 3D Diag Mammo W/Cad EDISON Bilateral CC and MLO view(s) were taken. Prior study comparison: July 11, 2021, left breast MG diagnostic mammo LT wo CAD. March 21, 2021, left breast MG 3d diag mammo w/cad LT. The breast tissue is heterogeneously dense. This may lower the sensitivity of mammography. No significant new findings when compared with previous films. These results were verbally communicated with the patient and result sheet given to the patient on 09/06/21. ASSESSMENT: Benign, BI-RAD 2 RECOMMENDATION: Routine screening mammogram of both breasts in 1 year.
== END | disposition home or self-care (01) ==
LOC: RADMAMWWP 10:55
PROVIDERS: ATTEND Surgery
DX: R92.8 Other abnormal and inconclusive findings on diagnostic imaging of breast (principal)
CPT/HCPCS: 77062; 77066

== ENCOUNTER → 2022-09-08 | Outpatient (CLI) | payer MEDICAID ==
[2022-09-08 15:03] LABS: Basophils # (A) 0.04 X 10*3/uL (0.00-0.10); Basophils % (A) 0.8 %; Eosinophils # (A) 0.19 X 10*3/uL (0.04-0.35); Eosinophils % (A) 3.8 %; HCT 41.3 % (37.2-46.3); HGB 12.7 g/dL (12.0-15.0); Immature Grans, Automated 0.4 %; Lymphocytes # (A) 1.78 X 10*3/uL (0.90-5.00); Lymphocytes % (A) 35.3 %; MCH 27.2 pg (27.0-32.0); MCHC 30.8 g/dL (32.0-37.0); MCV 88.4 fL (80.0-97.0); Mean Platelet Volume 10.8 fL (9.5-12.2); Monocytes # (A) 0.37 X 10*3/uL (0.20-1.00); Monocytes % (A) 7.3 %; NRBC Per 100 WBC 0 /100 WBCS (0.0-0.0); Neutrophils # (A) 2.64 X 10*3/uL (1.80-7.70); Neutrophils % (A) 52.4 %; Platelet Count 318 X 10*3/uL (140-440); RBC 4.67 X 10*6/uL (4.10-5.20); RDW 15.6 % (11.5-14.5); WBC 5.04 X 10*3/uL (4.50-10.00)
[2022-09-08 15:29] LABS: ALT 18 U/L (8-44); AST 19 U/L (13-35); African American GFR (CKD) 93.3 (60.0-200.0); Albumin 4.4 g/dL (3.8-4.9); Albumin/Globulin Ratio 1.61 (1.60-3.17); Alkaline Phosphatase 96 U/L (41-126); BUN/Creat Ratio 18.24 Ratio (12.00-20.00); Blood Urea Nitrogen 14.7 mg/dL (9.0-27.0); Calcium 9.8 mg/dL (8.7-10.3); Chloride 106 mmol/L (96-109); Chol/HDL Ratio 4.35 Ratio; Globulin 2.7 g/dL (1.6-3.3); Glucose 93 mg/dL (70-110); LDL Cholesterol,Calculated 172.4 mg/dL (0.0-131.0); Non-African American GFR(CKD) 80.5 (60.0-200.0); Potassium 4.8 mmol/L (3.5-5.5); Sodium 142 mmol/L (135-145); Total Protein 7.1 g/dL (6.2-8.2); VLDL Calculation 19.42 mg/dL (5.00-40.00)
== END | disposition home or self-care (01) ==
LOC: LABWHC1 10:13
PROVIDERS: ATTEND Physician Assistant Medical
DX: Z00.01 Encounter for general adult medical examination with abnormal findings (principal); Z11.59 Encounter for screening for other viral diseases; E78.5 Hyperlipidemia, unspecified; R73.03 Prediabetes; Z86.711 Personal history of pulmonary embolism
CPT/HCPCS: 36415; 80053; 80061; 83036; 84443; 85025; 86803

== ENCOUNTER → 2024-08-13 | Outpatient (CLI) | payer MEDICAID ==
[2024-08-13 12:52] LABS: Basophils # (A) 0.06 X 10*3/uL (0.00-0.10); Eosinophils % (A) 3.3 %; HGB 12.3 g/dL (12.0-15.0); Lymphocytes # (A) 1.99 X 10*3/uL (0.90-5.00); Lymphocytes % (A) 32.9 %; MCH 26.8 pg (27.0-32.0); MCHC 31.5 g/dL (32.0-37.0); Mean Platelet Volume 10.3 FL (9.5-12.2); Monocytes % (A) 6.6 %; NRBC Per 100 WBC 0 X 10*3/uL (0.00-0.01); Neutrophils # (A) 3.37 X 10*3/uL (1.80-7.70); Neutrophils % (A) 55.9 %; Platelet Count 300 X 10*3/uL (140-440); RBC 4.59 X 10*6/uL (4.10-5.20); RDW 14.7 % (11.5-14.5); WBC 6.04 X 10*3/uL (4.50-10.00)
[2024-08-13 13:15] LABS: ALT 19 U/L (8-44); AST 18 U/L (13-35); Albumin 4.1 g/dL (3.8-4.9); Albumin/Globulin Ratio 1.52 Ratio (1.60-3.17); Alkaline Phosphatase 93 U/L (41-126); BUN/Creat Ratio 22.14 Ratio (12.00-20.00); Blood Urea Nitrogen 15.5 mg/dL (9.0-27.0); Calcium 9.4 mg/dL (8.7-10.3); Carbon Dioxide 23.5 mmol/L (21.6-31.8); Chloride 108 mmol/L (96-109); Chol/HDL Ratio 3.41 Ratio; Globulin 2.7 g/dL (1.6-3.3); Glucose 92 mg/dL (70-110); LDL Cholesterol,Calculated 128.9 mg/dL (0.0-131.0); Potassium 4.5 mmol/L (3.5-5.5); Sodium 142 mmol/L (135-145); Total Bilirubin 0.4 mg/dL (0.3-1.2); Total Protein 6.8 g/dL (6.2-8.2); VLDL Calculation 19.56 mg/dL (5.00-40.00)
== END | disposition home or self-care (01) ==
LOC: LABWHC1 08:14
PROVIDERS: ATTEND Family Medicine
DX: Z13.220 Encounter for screening for lipoid disorders (principal); Z13.228 Encounter for screening for other metabolic disorders; Z13.29 Encounter for screening for other suspected endocrine disorder; Z86.711 Personal history of pulmonary embolism
CPT/HCPCS: 36415; 80053; 80061; 84443; 85025

== ENCOUNTER → 2025-01-26 | Outpatient (CLI) | payer MEDICAID ==
--- NOTE | 2025-01-26 11:03 | MM ---
Reason for Exam: Screening (asymptomatic). Last mammogram was performed 3 year(s) and 5 month(s) ago. Patient History: Menarche at age 11. First Full-Term at age 23. Postmenopausal. 07/11/2021, Benign Core Biopsy on the left side. 10/28/2016, High risk Core Biopsy on the right side. Maternal cousin had breast cancer, age 57. Sister had breast cancer, age 61. Risk Values: Alba 5 year model risk: 2.5%. NCI Lifetime model risk: 11.5%. Prior Study Comparison: 03/21/2021 Left Diagnostic Mammogram, [facility]. 07/11/2021 Left Diagnostic Mammogram, [facility]. 09/06/2021 Bilateral Diagnostic Mammogram, [facility]. Tissue Density: The breasts are heterogeneously dense, which may obscure small masses. Findings: Analyzed By CAD. Mammotome biopsy clip in the right breast is redemonstrated. There are a few tiny benign-appearing round calcifications in the left breast redemonstrated. There is no suspicious group of microcalcifications or new suspicious mass in either breast. Overall Assessment: Benign, BI-RAD 2 Management: Screening Mammogram of both breasts in 1 year. . Patient should continue monthly self-breast exams. A clinical breast exam by your physician is recommended on an annual basis. This exam should not preclude additional follow-up of suspicious palpable abnormalities. Note on Alba scores and lifetime risk: 1. A Alba score greater than 3% is considered moderate risk. If this is the case, consider specialist referral to assess eligibility for a risk reducing agent. 2. If overall lifetime risk for the development of breast cancer is 20% or higher, the patient may qualify for future screening with alternating mammogram and breast MRI. [facility], , 01/26/2025 11:00 AM. Electronically signed and approved by: Hussein Dupree M.D.
== END | disposition home or self-care (01) ==
LOC: RADMAMWWP 09:48
PROVIDERS: ATTEND Family Medicine
DX: Z12.31 Encounter for screening mammogram for malignant neoplasm of breast (principal); R92.333 Mammographic heterogeneous density, bilateral breasts; Z78.0 Asymptomatic menopausal state; Z80.3 Family history of malignant neoplasm of breast
CPT/HCPCS: 77063; 77067